=== PATIENT | male | born 1965 | race Caucasian/White ===

== ENCOUNTER → 2020-09-12 12:04 | Outpatient (BNVA) | payer OTHER, SELFPAY | PROVIDERS: Family Provider Family Medicine; PCP Family Medicine; Visit Provider Family Medicine | DX: Z91.89 Other specified personal risk factors, not elsewhere classified (principal); Z11.52 Encounter for screening for COVID-19 | CPT/HCPCS: 80053; 81000; 85025; 86618; 86666; 86757; 87635 ==

== ENCOUNTER 2020-09-24 12:24 | Outpatient (CLI) | payer OTHER, SELFPAY ==
--- NOTE | 2020-09-24 13:30 | USCV_ITS ---
Kirby Shoemaker Age: 55 Gender: M : 1965 Exam Date: 09/24/2020 12:52 Ordering Phys: eRx Cabrera MD Technologist: PITO Exam Location: [facility] – [place]_ Indication: EDEMA MEDIAL THIGH Aortic Velocity @ SMA (cm/s) FINDINGS No evidence of DVT seen in any vessel visualized at this time. There is superficial thrombus noted in the greater saphenous extending from below the left knee to mid thigh. CONCLUSIONS Superficial thrombus Left GSV extending from mid thigh to below left knee. Remainder normal D/w Dr Cabrera 09/24/20 Jovon Mcmahon MD (Electronically Signed) Final Date: 25 September 2020 12:32 S
== END 2020-09-24 12:25 | disposition home or self-care (01) ==
LOC: RAD 12:30 → US 12:31
PROVIDERS: PCP Family Medicine; Visit Provider Family Medicine
DX: R60.0 Localized edema (principal); I82.812 Embolism and thrombosis of superficial veins of left lower extremity
CPT/HCPCS: 80053; 85025; 93971

== ENCOUNTER → 2020-12-24 10:51 | Outpatient (BNVA) | payer OTHER, SELFPAY | PROVIDERS: PCP Family Medicine; Visit Provider Family Medicine | DX: I82.412 Acute embolism and thrombosis of left femoral vein (principal); D75.1 Secondary polycythemia | CPT/HCPCS: 80053; 85025 ==

== ENCOUNTER 2021-01-03 12:03 | Outpatient (CLI) | payer OTHER, SELFPAY ==
--- NOTE | 2021-01-03 12:00 | USCV_ITS ---
Kirby Shoemaker Age: 55 Gender: M : 1965 Exam Date: 01/03/2021 12:13 Ordering Phys: Rex Cabrera MD Technologist: AUGIE Exam Location: [facility] [place]_ Indication: FOLLOW UP PROCEDURES: Venous duplex imaging was performed in only the left lower extremity. The following venous structures were evaluated: common femoral vein, profunda vein, proximal portion of the greater saphenous vein, superficial femoral vein, and the popliteal vein. In addition, the posterior tibial and peroneal trunk were evaluated. Serial compression, augmentation maneuvers, and spectral Doppler flow evaluation were performed. FINDINGS: There appears to be thrombus within the varicose vein located mid thigh in the left lower extremity. All other veins appear free of thrombus at this time. CONCLUSIONS Superficial thrombus in a varicose vein mid thigh LLE Remainder of Left l LE veins are patent. No DVT Jovon Mcmahon MD (Electronically Signed) Final Date: 03 January 2021 17:29 S
== END 2021-01-03 12:04 | disposition home or self-care (01) ==
LOC: US 12:04
PROVIDERS: PCP Family Medicine; Visit Provider Family Medicine
DX: I82.4Z2 Acute embolism and thrombosis of unspecified deep veins of left distal lower extremity (principal)
CPT/HCPCS: 93971